=== PATIENT | male | born 1950 | race Two or more races ===

== ENCOUNTER 2018-11-12 10:41 | Outpatient (CLI) | payer OTHER | END 2018-11-12 10:47 | disposition home or self-care (01) | LOC: RX STUDY 10:41 | DX: K30 Functional dyspepsia (principal); R10.13 Epigastric pain ==

== ENCOUNTER → 2018-11-16 | Outpatient (CLI) | payer OTHER | END | disposition home or self-care (01) | LOC: NUCLEAR 08:00 | DX: K30 Functional dyspepsia (principal) | CPT/HCPCS: 78264; A9541 ==